=== PATIENT | female | born 1955 | race Caucasian/White ===

== ENCOUNTER → 2021-08-21 | Outpatient (CLI) | payer MEDICARE, OTHER ==
[~2021-08-21] MED LIST: BUSPIRONE HCL7.5 MG PO; CELEXA40 MG PO; FOLIC ACID 1 MG1 MG PO; GABAPENTIN600 MG PO; GLUCOPHAGE500 MG PO; KLONOPIN TAB 00.5 MG PO; LASIX40 MG PO; LOSARTAN-HCTZ1 EAC1 PO; MOBIC15 MG PO; NORVASC 5 MG TAB5 MG PO; POTASSIUM CHLO10 MEQ PO; SINGULAIR10 MG PO; TRAZODONE HCL150 MG PO; ULTRAM50 MG PO; VITAMIN D250000 UNIT PO; ZYLOPRIM 300 M300 MG PO
== END ==
LOC: KOH-I 11:54
DX: M54.50 Low back pain, unspecified (principal); M51.36 Other intervertebral disc degeneration, lumbar region; M47.816 Spondylosis without myelopathy or radiculopathy, lumbar region
CPT/HCPCS: 72100

== ENCOUNTER → 2021-10-22 | Outpatient (CLI) | payer MEDICARE, OTHER | LOC: KOH-I 10:33 | DX: M25.552 Pain in left hip (principal); M16.12 Unilateral primary osteoarthritis, left hip | CPT/HCPCS: 73502 ==

== ENCOUNTER → 2022-03-16 | Outpatient (CLI) | payer MEDICARE, OTHER | LOC: MRI 08:43 | DX: M25.552 Pain in left hip (principal) | CPT/HCPCS: 73721 ==

== ENCOUNTER → 2022-04-02 | Outpatient (CLI) | payer MEDICARE, OTHER | LOC: KOH-I 10:30 | DX: M54.50 Low back pain, unspecified (principal); M51.36 Other intervertebral disc degeneration, lumbar region; M47.816 Spondylosis without myelopathy or radiculopathy, lumbar region; M48.061 Spinal stenosis, lumbar region without neurogenic claudication | CPT/HCPCS: 72148 ==